=== PATIENT | female | born 1990 | race American Indian/Alaskan Native ===

== ENCOUNTER 2020-03-10 09:32 | Emergency (ER) | payer SELFPAY ==
[2020-03-10] MEDS ORDERED: IPRATROPIUM 0.02% NEBU 2.5 ML IH ONE (10:39)
[2020-03-10] MEDS ORDERED: dexAMETHasone 20 MG/5 ML VIAL IM ONE (10:39)
[2020-03-10] MEDS ORDERED: ALBUTEROL 2.5 MG/3 ML NEBU IH ONE (10:39)
[2020-03-10] MEDS ORDERED: ACETAMINOPHEN 325 MG TAB PO ONE (10:40)
--- NOTE | 2020-03-10 11:17 | Emergency Department Report ---
- General Chief Complaint: Adult Asthma Stated Complaint: LOWELL/BODY PAIN Time Seen by Provider: 03/10/20 10:19 Source: patient Mode of arrival: Ambulatory Limitations: No Limitations - History of Present Illness Initial Comments: Patient is a 29-year-old female presents emergency room with complaints of shortness of breath that began 5 days ago. She has associated cough, generali zed body aches, chills, headache, rhinorrhea. She denies any nausea, vomiting, diarrhea, abdominal pain, chest pain. She denies any known sick contacts. She denies any recent travel. She has a past medical history of asthma and states she has been using her albuterol inhaler but does not feel like she is getting very much relief. She states that she is currently on her menstrual cycle and denies any possibility of . - Related Data Previous Rx's Medication Instructions Recorded Last Taken Type Benzonatate [Tessalon Perles] 100 mg PO Q8HR PRN #14 capsule 03/10/20 Unknown Rx Prednisone [predniSONE 10 mg 10 mg PO .TAPER #1 tab.ds.pk 03/10/20 Unknown Rx (6-Day Pack, 21 Tabs)] guaiFENesin ER [Mucinex ER] 600 mg PO BID #14 tablet.er 03/10/20 Unknown Rx Allergies Allergy/AdvReac Type Severity Reaction Status Date / Time Guide Rock [employer]ivatives Allergy Rash Verified 03/10/20 09:47 lemon Allergy Rash Verified 03/10/20 09:47 ED Review of Systems ROS: Stated complaint: LOWELL/BODY PAIN Other details as noted in HPI Comment: All other systems reviewed and negative ED Past Medical Hx - Past Medical History Previous Medical History?: Yes Hx Asthma: Yes - Surgical History Past Surgical History?: Yes Additional Surgical History: x 1 - Social History Smoking Status: Current Every Day Smoker Substance Use Type: Alcohol - Medications Home Medications: Home Medications Medication Instructions Recorded Confirmed Last Taken Type Benzonatate [Tessalon Perles] 100 mg PO Q8HR PRN #14 capsule 03/10/20 Unknown Rx Prednisone [predniSONE 10 mg 10 mg PO .TAPER #1 tab.ds.pk 03/10/20 Unknown Rx (6-Day Pack, 21 Tabs)] guaiFENesin ER [Mucinex ER] 600 mg PO BID #14 tablet.er 03/10/20 Unknown Rx ED Physical Exam - General Limitations: No Limitations General appearance: alert, in no apparent distress - Head Head exam: Present: atraumatic, normocephalic - Eye Eye exam: Present: normal appearance - ENT ENT exam: Present: mucous membranes moist - Respiratory Respiratory exam: Present: wheezes, rhonchi, decreased breath sounds, prolonged expiratory. Absent: respiratory distress, rales, stridor, chest wall tenderness, accessory muscle use - Cardiovascular Cardiovascular Exam: Present: regular rate, normal rhythm, normal heart sounds. Absent: systolic murmur, diastolic murmur, rubs, gallop - Neurological Exam Neurological exam: Present: alert, oriented X3 - Psychiatric Psychiatric exam: Present: normal affect, normal mood - Skin Skin exam: Present: warm, dry, intact ED Course Vital Signs 03/10/20 03/10/20 09:49 13:46 Temperature 98.8 F Pulse Rate 90 87 Respiratory 18 16 Rate Blood Pressure 102/76 Blood Pressure 111/72 [Right] O2 Sat by Pulse 98 99 Oximetry ED Medical Decision Making - Lab Data Vital Signs 03/10/20 03/10/20 09:49 13:46 Temperature 98.8 F Pulse Rate 90 87 Respiratory 18 16 Rate Blood Pressure 102/76 Blood Pressure 111/72 [Right] O2 Sat by Pulse 98 99 Oximetry - Radiology Data Radiology results: report reviewed Ordering Physician: DAVID GALEANA Date of Service: 03/10/20 Procedure(s): XR chest routine 2V Accession Number(s): [id number] cc: DAVID GALEANA Fluoro Time In Minutes: CHEST 2 VIEWS INDICATION / CLINICAL INFORMATION: cough, SOB. COMPARISON: None available. FINDINGS: SUPPORT DEVICES: None. HEART / MEDIASTINUM: No significant abnormality. LUNGS / PLEURA: No significant pulmonary or pleural abnormality. No pneumothorax. ADDITIONAL FINDINGS: No significant additional findings. IMPRESSION: 1. No acute findings. Signer Name: Evan Bass MD Signed: 03/10/2020 12:59 PM Workstation Name: [id number] Transcribed By: TL Dictated By: Evan Bass MD Electronically Authenticated By: Evan Bass MD Signed Date/Time: 03/10/201258 DD/ 58 TD/TT: - Medical Decision Making Patient is a 29-year-old female presents emergency room with complaints of shortness of breath that began 5 days ago. She has associated cough, generalized body aches, chills, headache, rhinorrhea. She denies any nausea, vomiting, diarrhea, abdominal pain, chest pain. She denies any known sick contacts. She denies any recent travel. She has a past medical history of asthma and states she has been using her albuterol inhaler but does not feel like she is getting very much relief. She states that she is currently on her menstrual cycle and denies any possibility of . Vitals are normal. Patient has wheezing and rhonchi on exam, no respiratory distress, no accessory muscle use. Chest x-ray: 1. No acute findings. Patient given nebulizer treatment and IM steroids and on reexamination wheezing has completely resolved and patient feels much better and ready to go home. Symptoms likely related to viral URI causing asthma exacerbation. She has no clinical signs of bacterial pneumonia or bacterial bronchitis. Patient is presenting with the symptoms during COVID-19 pandemic, discussed the possibility of COVID-19 with patient, discussed strict return precautions, discussed outpatient testing, discussed self quarantine. Patient given prescription for Tessalon Perles, Mucinex, prednisone. She states that she already has an albuterol inhaler with her. Advised patient Please take medication as prescribed. Please increase your fluid intake over the next several days. May take Tylenol as needed for fever or body aches. Follow-up with a primary care doctor for reexamination. Return to emergency room immediately for any new or worsening symptoms including but not limited to difficulty breathing, shortness of breath, severe chest pain, unable to tolerate by mouth intake, etc. Please self quarantine for 10 days from the onset of your symptoms. Please do not go out in public. If you are around others at home please wear a mask. If you need to cough or sneeze please do so in a napkin and immediately throw it away and immediately wash your hands. Wash your hands frequently. Wipe everything down. Recommend for you to get COVID-19 testing, may have this done at primary care doctor, health department, [facility] [address] testing center. - Differential Diagnosis PNA, URI, acute bronchitis, asthma exacerbation, reactive airway, COVID-19 Critical care attestation.: If time is entered above; I have spent that time in minutes in the direct care of this critically ill patient, excluding procedure time. ED Disposition Clinical Impression: Viral syndrome Asthma Qualifiers: Asthma severity: unspecified severity Asthma persistence: unspecified Asthma complication type: with acute exacerbation Qualified Code(s): J45.901 - Unspecified asthma with (acute) exacerbation Disposition: DC-01 TO HOME OR SELFCARE Is pt being admited?: No Does the pt Need Aspirin: No Condition: Stable Instructions: Asthma, Adult, Viral Respiratory Infection, Arpk-Ci-Tnue, Asthma (ED) Additional Instructions: Please take medication as prescribed. Please increase your fluid intake over the next several days. May take Tylenol as needed for fever or body aches. Follow-up with a primary care doctor for reexamination. Return to emergency room immediately for any new or worsening symptoms including but not limited to difficulty breathing, shortness of breath, severe chest pain, unable to tolerate by mouth intake, etc. Please self quarantine for 10 days from the onset of your symptoms. Please do not go out in public. If you are around others at home please wear a mask. If you need to cough or sneeze please do so in a napkin and immediately throw it away and immediately wash your hands. Wash your hands frequently. Wipe everything down. Recommend for you to get COVID-19 testing, may have this done at primary care doctor, health department, [facility] testing center. Prescriptions: guaiFENesin ER [Mucinex ER] 600 mg PO BID #14 tablet.er Prednisone [predniSONE 10 mg (6-Day Pack, 21 Tabs)] 10 mg PO .TAPER #1 tab.ds.pk Benzonatate [Tessalon Perles] 100 mg PO Q8HR PRN #14 capsule PRN Reason: cough Referrals: PRIMARY MD KERWIN [Primary Care Provider] - 2-3 Days HENRIQUE SHANKAR MD [Staff Physician] - 2-3 Days [facility] [Provider Group] - 2-3 Days Forms: Work/School Release Form(ED) Time of Disposition: 13:19 Print Language: PALAUAN
--- NOTE | 2020-03-10 13:04 | XRay Report ---
CHEST 2 VIEWS INDICATION / CLINICAL INFORMATION: cough, SOB. COMPARISON: None available. FINDINGS: SUPPORT DEVICES: None. HEART / MEDIASTINUM: No significant abnormality. LUNGS / PLEURA: No significant pulmonary or pleural abnormality. No pneumothorax. ADDITIONAL FINDINGS: No significant additional findings. IMPRESSION: 1. No acute findings. Signer Name: Evan Bass MD Signed: 03/10/2020 12:59 PM Workstation Name: [id number]
[2020-03-10 13:47] VITALS: BP 111/72
== END 2020-03-10 13:47 | disposition home or self-care (01) ==
LOC: ED 09:32
DX: B34.9 Viral infection, unspecified (principal); J45.901 Unspecified asthma with (acute) exacerbation; F17.200 Nicotine dependence, unspecified, uncomplicated; Z91.018 Allergy to other foods
CPT/HCPCS: 71046; 96372; 99283; J1100